=== PATIENT | female | born 1950 | race Caucasian/White ===

== ENCOUNTER 2018-11-01 12:54 | Emergency (ER) | payer MEDICARE, OTHER ==
[2018-11-01 14:18] LABS: BASOPHILS # (AUTO) 0.1 10^3/uL (0.0-0.1); BASOPHILS % (AUTO) 0.4 %; EOSINOPHILS # (AUTO) 0.3 10^3/uL (0.0-0.7); EOSINOPHILS % (AUTO) 2.4 %; HGB - HEMOGLOBIN 14.5 g/dL (12.0-16.0); LYMPHOCYTES # (AUTO) 1.2 10^3/uL (1.5-3.5); LYMPHOCYTES % (AUTO) 9.8 %; MEAN CORPUSCULAR HEMOGLOBIN 29.2 pg (27.0-31.0); MEAN CORPUSCULAR HGB CONC 32.7 g/dL (32.0-36.0); MEAN CORPUSCULAR VOLUME 89.3 fL (81.0-99.0); MEAN PLATELET VOLUME 7.5 fL (7.9-10.8); MONOCYTES # (AUTO) 1.1 10^3/uL (0.0-1.0); MONOCYTES % (AUTO) 8.5 %; NEUTROPHILS # (AUTO) 10.1 10^3/uL (1.5-6.6); NEUTROPHILS % (AUTO) 78.9 %; PLT - PLATELET COUNT 273 10^3/uL (130-450); RED BLOOD COUNT 4.98 10^6/uL (4.20-5.40); RED CELL DISTRIBUTION WIDTH 14.3 % (12.0-15.0); WHITE BLOOD COUNT 12.8 x10^3/uL (4.8-10.8)
[2018-11-01 14:28] LABS: ALBUMIN 4.3 g/dL (3.2-5.5); ALBUMIN/GLOBULIN RATIO 1.1 (1.0-2.2); BILIRUBIN,TOTAL 0.4 mg/dL (0.2-1.0); CALCIUM 10.2 mg/dL (8.5-10.3); TOTAL PROTEIN 8.2 g/dL (6.7-8.2)
--- NOTE | 2018-11-01 15:57 | ED Physician Documentation ---
PD HPI NVD - Stated complaint Stated Complaint: DIARRHEA - Chief complaint Chief Complaint: Abd Pain - History obtained from History obtained from: Patient - History of Present Illness Timing - onset: How many weeks ago (2) Timing - duration: Weeks (2) Timing - details: Abrupt onset, Still present (has had 8-10 large watery diarrheal stools daily, brown and malodorous) Associated symptoms: Abdominal pain (cramping intermittent), Loss of appetite, Other (denies weight gain). No: Fever Contributing factors: No: Sick contact (her had diarrhea for 1-2 days just prior to her, but his stopped without intervention.), Bad food, Travel, Recent antibiotics Improved by: No: Eating, BM Worsened by: Eating Similar symptoms before: Has not had sx before Recently seen: Not recently seen Review of Systems Constitutional: reports: Fatigue. denies: Fever, Chills, Myalgias Nose: denies: Rhinorrhea / runny nose, Congestion Throat: denies: Sore throat Respiratory: denies: Cough GI: reports: Abdominal Pain (cramping), Nausea, Diarrhea. denies: Abdominal Swelling, Vomiting, Bloody / black stool Skin: denies: Rash, Lesions Neurologic: reports: Generalized weakness Endocrine: denies: Weight loss PD PAST MEDICAL HISTORY - Past Medical History Cardiovascular: Hypertension Respiratory: None Neuro: None Endocrine/Autoimmune: Type 2 diabetes GI: None - Present Medications Home Medications: Ambulatory Orders Medication Instructions Recorded Confirmed Aspirin Chewable [[facility] [place] 81 mg PO DAILY 11/01/18 11/01/18 Aspirin] Diphenoxylate/Atropine [Lomotil] 1 each PO QID PRN #12 tablet 11/01/18 Lisinopril [Zestril] 20 mg PO 11/01/18 Metoprolol Succinate 25 mg PO 11/01/18 Naproxen 375 mg PO BID #20 tablet 11/01/18 Omeprazole 20 mg PO 11/01/18 Ondansetron Odt [Zofran] 4 mg TL Q6H PRN #10 tablet 11/01/18 Pioglitazone [Actos] 15 mg PO DAILY 11/01/18 11/01/18 Pravastatin [Pravachol] 10 mg PO 11/01/18 11/01/18 Rosuvastatin Calcium [Crestor] 5 mg PO 11/01/18 Saccharomyces Boulardii [Florastor] 250 mg PO BID #20 capsule 11/01/18 Venlafaxine [Effexor] 37.5 mg PO BID 11/01/18 11/01/18 - Allergies Allergies/Adverse Reactions: Allergies Allergy/AdvReac Type Severity Reaction Status Date / Time tetanus and diphtheria AdvReac Unknown Verified 11/01/18 13:12 toxoids PD ED PE NORMAL - Vitals Vital signs reviewed: Yes - General General: Alert and oriented X 3, Well developed/nourished - HEENT HEENT: Pharynx benign - Neck Neck: Supple, no meningeal sign, No adenopathy - Cardiac Cardiac: RRR, No murmur - Respiratory Respiratory: Clear bilaterally - Abdomen Abdomen: Normal bowel sounds, Soft, Non distended, No organomegaly, Other (mild lower tenderness without focality. No percussion, guarding, nor rebound. ) - Rectal Rectal: Deferred - Back Back: No CVA TTP - Derm Derm: Normal color Results - Vitals Vitals: Vital Signs - 24 hr 11/01/18 18:15 Heart Rate 77 Respiratory 16 Rate Blood Pressure 133/71 H O2 Saturation 93 Oxygen O2 Source Room air - Labs Labs: Laboratory Tests 11/01/18 11/01/18 11/01/18 14:10 14:10 14:10 WBC 12.8 H RBC 4.98 Hgb 14.5 Hct 44.5 MCV 89.3 MCH 29.2 MCHC 32.7 RDW 14.3 Plt Count 273 MPV 7.5 L Neut # (Auto) 10.1 H Lymph # (Auto) 1.2 L [place] # (Auto) 1.1 H Eos # (Auto) 0.3 Baso # (Auto) 0.1 Absolute Nucleated RBC 0.00 Nucleated RBC % 0.0 Sodium 138 Potassium 4.1 Chloride 103 Carbon Dioxide 24 Anion Gap 11.0 BUN 25 H Creatinine 1.0 Estimated GFR (MDRD) 55 L Glucose 265 H Calcium 10.2 Magnesium 1.6 L Total Bilirubin 0.4 AST 18 ALT 17 Alkaline Phosphatase 73 Total Protein 8.2 Albumin 4.3 Globulin 3.9 Albumin/Globulin Ratio 1.1 Lipase 24 Urine Color Urine Clarity Urine pH Ur Specific [place] Urine Protein Urine Glucose (UA) Urine Ketones Urine Occult Blood Urine Nitrite Urine Bilirubin Urine Urobilinogen Ur Leukocyte Esterase Urine RBC Urine WBC Ur Squamous Epith Cells Urine Bacteria Urine Mucus Ur Microscopic Review Urine Culture Comments 11/01/18 16:49 WBC RBC Hgb Hct MCV MCH MCHC RDW Plt Count MPV Neut # (Auto) Lymph # (Auto) [place] # (Auto) Eos # (Auto) Baso # (Auto) Absolute Nucleated RBC Nucleated RBC % Sodium Potassium Chloride Carbon Dioxide Anion Gap BUN Creatinine Estimated GFR (MDRD) Glucose Calcium Magnesium Total Bilirubin AST ALT Alkaline Phosphatase Total Protein Albumin Globulin Albumin/Globulin Ratio Lipase Urine Color DARK YELLOW Urine Clarity CLEAR Urine pH 5.5 Ur Specific [place] >=1.030 H Urine Protein 100 H Urine Glucose (UA) 250 H Urine Ketones TRACE Urine Occult Blood NEGATIVE Urine Nitrite NEGATIVE Urine Bilirubin SMALL H Urine Urobilinogen 0.2 (NORMAL) Ur Leukocyte Esterase NEGATIVE Urine RBC 0-5 Urine WBC 0-3 Ur Squamous Epith Cells MANY Squamous H Urine Bacteria Few Urine Mucus Few Strands Ur Microscopic Review INDICATED Urine Culture Comments NOT INDICATED PD MEDICAL DECISION MAKING - ED course Complexity details: re-evaluated patient (feeling better with IV fluids. ), considered differential (she of course could not have any stool output here despite trying. Sent home with specimen collection stuff. ), d/w patient Departure - Departure Disposition: Home, Self Care Clinical Impression: Dehydration Diarrhea Qualifiers: Diarrhea type: presumed infectious Qualified Code(s): R19.7 - Diarrhea, unspecified Condition: Stable Record reviewed to determine appropriate education?: Yes Instructions: ED Diet Vomiting Diarrhea Follow-Up: BEAU ANN MD [Primary Care Provider] - Prescriptions: Diphenoxylate/Atropine [Lomotil] 1 each PO QID PRN #12 tablet PRN Reason: Diarrhea Naproxen 375 mg PO BID #20 tablet Ondansetron Odt [Zofran] 4 mg TL Q6H PRN #10 tablet PRN Reason: Nausea / Vomiting Saccharomyces Boulardii [Florastor] 250 mg PO BID #20 capsule Comments: The diarrhea you are having is likely infectious, at least that would be the thing to evaluate first. Bring a diarrheal stool sample either back to the lab here or to your primary care's office for stool studies for C. difficile and culture. Do not take any antidiarrheal medicine until you have obtained the sample. You can use ondansetron if needed for nausea. Florastor probiotic twice daily and you can start that. Naproxen anti-inflammatory twice daily for cramps and pains. You can use the Lomotil antidiarrheal medicine after obtaining a stool sample. If it is evening or over the weekend you can just put the stool sample in the specimen cup and in a Ziploc bag in the fridge and bring it in the next day. Follow-up with your primary care this coming week. Discharge Date/Time: 11/01/18 18:28
[2018-11-01] MEDS ORDERED: SODIUM CHLORIDE 0.9% 1,000 ML IV ONE (16:39)
[2018-11-01] MEDS ORDERED: KETOROLAC 15 MG/ML VIAL IVP STA (16:40)
[2018-11-01] MEDS ORDERED: ONDANSETRON 4 MG/2 ML VIAL IVP STA (16:40)
[2018-11-01 17:17] LABS: GLUCOSE, URINE (UA) 250 mg/dL (NEGATIVE); KETONES,URINE (UA) TRACE mg/dL (NEGATIVE); LEUKOCYTE ESTERASE, URINE NEGATIVE (NEGATIVE); NITRITE,URINE NEGATIVE (NEGATIVE); OCCULT BLOOD,URINE NEGATIVE (NEGATIVE); PH,URINE 5.5 PH (5.0-7.5); PROTEIN,URINE 100 mg/dL (NEGATIVE); UROBILINOGEN,URINE 0.2 (NORMAL) E.U./dL (NORMAL)
[2018-11-01 17:26] LABS: BILIRUBIN,URINE SMALL (NEGATIVE); CLARITY,URINE CLEAR (CLEAR); ICTOTEST,URINE POSITIVE
[2018-11-01 17:39] LABS: RBC,URINE 0-5 /HPF (0-5); SQUAMOUS EPITHELIAL CELL,UR MANY Squamous (<= Few)
[2018-11-01 17:40] LABS: BACTERIA,URINE Few /HPF (None Seen); MUCUS,URINE Few Strands
[2018-11-01 18:16] VITALS: BP 133/71
== END 2018-11-01 18:28 | disposition home or self-care (01) ==
LOC: ED 12:54
DX: E86.0 Dehydration (principal); R19.7 Diarrhea, unspecified; I10 Essential (primary) hypertension; E11.9 Type 2 diabetes mellitus without complications; Z79.82 Long term (current) use of aspirin
CPT/HCPCS: 36415; 80053; 81001; 81003; 83690; 83735; 85025; 87086; 96361; 96374; 99283

== ENCOUNTER 2019-09-02 13:59 | Outpatient (CLI) | payer MEDICARE, OTHER ==
--- NOTE | 2019-09-05 09:01 | DEXA Report ---
Reason: MENOPAUSAL Procedure Date: 09/02/2019 Accession Number: [id number] / [id number] Procedure: DEX - Dexa Spine and/or Hip CPT Code: Final Report FULL RESULT: EXAM: Dexa Spine and/or Hip DATE: 09/02/2019 6:02 PM CLINICAL HISTORY: MENOPAUSAL TECHNIQUE: Dual energy x-ray absorptiometry (DXA) was performed on a [employer] System. Regions measured are the AP Spine, femoral neck, and if needed forearm. COMPARISON: None. In accordance with the International Society for Clinical Densitometry (ISCD) guidelines, data from previous exams may be reanalyzed using current recommendations and techniques. This is done to allow a more accurate basis for comparison with the current study. FINDINGS: The data for the lumbar spine is as follows: BMD (g/cm/cm) T-SCORE Z-SCORE REGION L1 1.231 0.8 1.6 L2 1.253 0.4 1.2 L3 1.368 1.4 2.2 L4 1.316 1.0 1.7 TOTAL 1.294 1.0 1.7 NOTE: All evaluable vertebrae are used for classification The data for the hip is as follows: BMD (g/cm/cm) T-SCORE Z-SCORE REGION Neck 0.969 -0.5 0.7 TOTAL 1.103 0.8 1.6 NOTE: The femoral neck or total proximal femur, whichever is lowest, is used for classification. IMPRESSION: THE WHO CLASSIFICATION BASED ON THE INTERNATIONAL REFERENCE STANDARD IS NORMAL. THE FRACTURE RISK IS NOT INCREASED. RECOMMENDATION: Patients with diagnosis of osteoporosis or osteopenia should have regular bone mineral density assessment. For those eligible for Medicare, routine testing is allowed once every 2 years. Testing frequency can be increased for patients who have rapidly progressing disease or for those who are receiving medical therapy to restore bone mass. COMMENT: World Health Organization (WHO) definitions for osteoporosis and osteopenia: NORMAL BMD: T-score at -1.0 or higher, fracture risk is low OSTEOPENIA BMD: T-score between -1.0 and -2.5, fracture risk is increased. OSTEOPOROSIS BMD: T-score at -2.5 or lower, fracture risk is high. National Osteoporosis Foundation recommends: 1. Obtain adequate dietary calcium (at least 1200 mg per day) and vitamin D (400-800 international units per day). 2. Participate, as appropriate, in regular weightbearing and muscle-strengthening exercise. 3. Avoid tobacco use and reduce alcohol and caffeine intake. 4. For more detailed information see the website at www.NOF.org.
== END 2019-09-02 14:00 | disposition home or self-care (01) ==
LOC: DI 13:59
PROVIDERS: ATTEND Internal Medicine
DX: Z78.0 Asymptomatic menopausal state (principal)
CPT/HCPCS: 77080

== ENCOUNTER 2019-10-06 07:24 | Day surgery (SDC) | payer MEDICARE, OTHER ==
[2019-10-06] MEDS ORDERED: LACTATED RINGERS 1,000 ML IV ONE (07:27)
[2019-10-06] MEDS ORDERED: fentaNYL 250 MCG/5 ML VIAL IVP ONE (08:54)
[2019-10-06] MEDS ORDERED: MIDAZOLAM 2 MG/2 ML VIAL IVP ONE (08:54)
[2019-10-06 10:16] VITALS: BP 122/65
== END 2019-10-06 07:25 | disposition home or self-care (01) ==
LOC: SDS 07:24
PROVIDERS: ATTEND Internal Medicine Gastroenterology
PROC: 0DBP8ZZ Excision of Rectum, Via Natural or Artificial Opening Endoscopic (ICD-10-PCS; 2019-10-06)
PROC: 0DBN8ZZ Excision of Sigmoid Colon, Via Natural or Artificial Opening Endoscopic (ICD-10-PCS; principal; 2019-10-06 08:45)
DX: D12.0 Benign neoplasm of cecum (principal); K62.1 Rectal polyp; K57.30 Diverticulosis of large intestine without perforation or abscess without bleeding; K21.9 Gastro-esophageal reflux disease without esophagitis; E11.9 Type 2 diabetes mellitus without complications; E66.9 Obesity, unspecified; Z68.35 Body mass index [BMI] 35.0-35.9, adult; E78.00 Pure hypercholesterolemia, unspecified; M19.90 Unspecified osteoarthritis, unspecified site; F32.9 Major depressive disorder, single episode, unspecified; R32 Unspecified urinary incontinence; Z79.82 Long term (current) use of aspirin; Z79.84 Long term (current) use of oral hypoglycemic drugs; Z79.899 Other long term (current) drug therapy
CPT/HCPCS: 45380; 45385; J3010; J7120

== ENCOUNTER 2020-10-04 14:16 | Outpatient (CLI) | payer MEDICARE, OTHER ==
--- NOTE | 2020-10-04 15:49 | MRI Report ---
PROCEDURE: Lumbar Spine W/O INDICATIONS: LUMBAR RADICULOPATHY TECHNIQUE: Noncontrast sagittal T1 spin echo and T2 fast echo, sagittal STIR, axial T1 and T2 fast spin echo thr ough the lumbar spine. In cases with scoliosis, additional coronal T2 fast spin echo may be performe d. COMPARISON: None available. FINDINGS: Image quality: Excellent. Alignment and Curvature: There is mild retrolisthesis seen at the L4-L5 level. Mild dextroconvex sc oliotic curvature is seen. Bone Marrow: There is linear increased STIR signal seen along the superior endplate of L3, which is b est seen on series 605 image 10. No significant loss of height can be seen. Minimal anterior wedge de formity can be seen of T11 and T12, without acute features are seen at these levels. Spinal Cord: Conus medullaris terminates at the L1 level. Visualized cord demonstrates normal signa l and size. Paraspinous Soft Tissues: No paravertebral masses. T12-L1: Mild to moderate loss of disc height and disc signal can be seen. Mild disc bulge is seen. T here is a central/left disc protrusion. No neural foraminal narrowing is seen. Mild central canal na rrowing is seen. L1-L2: There is a visualization of a left-sided annular fissure, as on series 1 image 29. L2-L3: The disc height is well-preserved. There is loss of disc signal seen. Mild disc bulge is se en, which is eccentric to the right. There is moderate right-sided and mild left-sided facet hypertro phy seen. There is minimal to mild left-sided and no significant right-sided neuroforaminal narrowing seen. The central canal is widely patent. L3-L4: Moderate to severe loss of disc height and disc signal can be seen. Moderate disc bulge is s een, with a central disc extrusion, with mild inferior migration of the disc material. Moderate face t hypertrophy is seen. There is moderate to severe left-sided neuroforaminal narrowing, with a minim al degree of compression upon the exiting left L3 nerve root. Moderate right-sided neuroforaminal corey rowing can be seen. Moderate central canal narrowing is seen. L4-L5: Moderate to severe loss of disc height and disc signal can be seen. At least moderate disc b ulge is seen, which is eccentric to the right. There is a central/right disc extrusion seen, as on se rhina 4 image 9 and on series 801 image 10. Moderate facet hypertrophy is seen. There is at least mo derate left-sided and moderate to severe right-sided neuroforaminal narrowing seen. Compression is se en upon the exiting nerve roots. There has been removal of portions of the posterior elements. No s ignificant central canal narrowing is seen. L5-S1: The disc height is well-preserved. There is loss of disc signal seen. Mild disc bulge is se en. Moderate facet hypertrophy is seen. There is moderate bilateral neuroforaminal narrowing seen, left worse than right. Minimal central canal narrowing is seen. IMPRESSION: Findings suspicious for a nondisplaced fracture involving the superior endplate of L3, y et without associated loss of vertebral body height. If clinically appropriate, a follow-up CT could be considered for further evaluation. Multiple levels of degenerative change are seen, which are worst at L3-L4 and L4-L5, where disc extru sions can be seen. Remote T11 and T12 anterior wedge deformities can be seen. Reviewed by: Anton Johnston MD on 10/04/2020 2:48 PM [facility] Approved by: Anton Johnston MD on 10/04/2020 2:48 PM [facility] Station ID: [id number]
== END 2020-10-04 14:17 | disposition home or self-care (01) ==
LOC: DI 14:16
PROVIDERS: ATTEND Internal Medicine
DX: M51.16 Intervertebral disc disorders with radiculopathy, lumbar region (principal)